=== PATIENT | female | born 1985 | race Caucasian/White ===

== ENCOUNTER → 2019-03-21 | Outpatient (CLI) | payer BC ==
--- NOTE | 2019-03-21 15:43 | US ---
EXAMINATION TYPE: US pelvic complete DATE OF EXAM: 03/21/2019 COMPARISON: NONE CLINICAL HISTORY: N92.3 Ovulation bleeding. Vaginal bleeding during and after intercourse. Intermenst rual spotting TECHNIQUE: Transabdominal (TA). Date of LMP: 03/14/19 EXAM MEASUREMENTS: Uterus: 10.1 x 3.4 x 5.6 cm Endometrial Stripe: 0.8 cm Right Ovary: 5.1 x 2.3 x 2.4 cm Left Ovary: 4.4 x 1.8 x 1.8 cm 1. Uterus: Anteverted appears wnl 2. Endometrium: wnl 3. Right Ovary: dominant follicle = 1.7 x 2.6 x 1.8cm 4. Left Ovary: follicles noted 5. Bilateral Adnexa: wnl 6. Posterior cul-de-sac: wnl IMPRESSION: Unremarkable pelvic ultrasound. Endometrial thickness is within normal limits. Physiologi c follicular change of the ovaries.
== END | disposition home or self-care (01) ==
LOC: RADUSWWP 14:53
PROVIDERS: ATTEND Obstetrics & Gynecology
DX: N92.3 Ovulation bleeding (principal)
CPT/HCPCS: 76856

== ENCOUNTER → 2020-05-07 | Outpatient (CLI) | payer BC ==
--- NOTE | 2020-05-07 14:54 | MM ---
Reason for exam: screening (asymptomatic). Baseline mammogram. History: Family history of breast cancer in maternal grandmother at age 70. Taking hormonal contraceptives beginning at age 14. Physical Findings: Nurse Summary: 2cm nodule in the right breast at 10-11 o'clock (nurse erin). MG 3D Screening Mammo W/Cad Bilateral CC and MLO view(s) were taken. The breast tissue is extremely dense which could obscure a lesion on mammography. There is no discrete abnormality including area of concern palpable region. These results were verbally communicated with the patient and result sheet given to the patient on 05/07/20. ASSESSMENT: Incomplete: need additional imaging evaluation, BI-RAD 0 RECOMMENDATION: Ultrasound of the right breast. (palpable)
--- NOTE | 2020-05-07 14:55 | USB ---
Reason for exam: additional evaluation requested from abnormal screening. History: Family history of breast cancer in maternal grandmother at age 70. Taking hormonal contraceptives beginning at age 14. Physical Findings: Breast exam preformed at baseline screening. US Breast Workup Limited RT Technologist: Alison Carbajal Right limited breast ultrasound including focal area of concern, retroareolar and axilla demonstrates a 0.7 x 0.7 x 0.5cm cystic lesion at 10 o'clock and a 1.1 x 0.6 x 0.6cm lymph node at the axilla. These results were verbally communicated with the patient and result sheet given to the patient on 05/07/20. ASSESSMENT: Benign, BI-RAD 2 RECOMMENDATION: Routine screening mammogram of both breasts at age 39. Manage on a clinical basis with regard to palpable.
== END | disposition home or self-care (01) ==
LOC: RADMAMWWP 12:58
PROVIDERS: ATTEND Obstetrics & Gynecology
DX: Z12.31 Encounter for screening mammogram for malignant neoplasm of breast (principal); N63.11 Unspecified lump in the right breast, upper outer quadrant
CPT/HCPCS: 77063; 77067

== ENCOUNTER → 2020-12-18 | Outpatient (CLI) | payer BC ==
--- NOTE | 2020-12-19 08:30 | XR ---
Lumbar spine HISTORY: M 54.41 3 views of the lumbar spine Lumbar vertebral bodies show preserved height, alignment, and bone mineralization. There is mild spon dylosis present. Disc spaces are maintained with exception of disc height loss at L1-2. Sclerosis pre sent in the posterior elements of the lower lumbar spine. IMPRESSION: Degenerative disc disease, facet arthropathy
== END | disposition home or self-care (01) ==
LOC: RADXRMAIN 16:35
PROVIDERS: ATTEND Internal Medicine
DX: M47.816 Spondylosis without myelopathy or radiculopathy, lumbar region (principal); M51.36 Other intervertebral disc degeneration, lumbar region
CPT/HCPCS: 72100

== ENCOUNTER → 2023-09-01 | Outpatient (CLI) | payer BC ==
--- NOTE | 2023-09-01 16:43 | CT ---
EXAMINATION TYPE: CT abdomen pelvis w con DATE OF EXAM: 09/01/2023 COMPARISON: None INDICATION: abd pain and bloating. DLP: 580.5 mGycm, Automated exposure control for dose reduction was used. CONTRAST: 100ml mL of Isovue 300. Study performed with Oral Contrast TECHNIQUE: Axial images were obtained from above the diaphragm to the pubic rami in the axial plane a t 5 mm thick sections. Reconstructed images are reviewed on the computer in the coronal plane. FINDINGS: Limited CT sections are obtained the lung bases. The lung bases are clear. CT ABDOMEN: Liver: Normal Spleen: Normal Pancreas: Normal Adrenal glands: The adrenal glands are normal. Gallbladder: Normal Kidneys: No masses are evident. No hydronephrosis is present. No cysts are present. Delayed images were obtained through the kidneys, which remain unremarkable. Aorta: None Inferior vena cava: Normal. CT PELVIS: Loops of bowel within the abdomen and pelvis are normal. There are loops of bowel which are incom pletely distended or lack oral contrast limiting their evaluation. Appendix: Normal as visualized. Urinary bladder: Normal. Genitourinary structures: Uterus as visualized is normal. Adnexa are normal Osseous structures: No suspicious lytic or sclerotic lesions. IMPRESSION: 1. No suspicious Q changes CT abdomen and pelvis
== END | disposition home or self-care (01) ==
LOC: RADCTMAIN 14:33
PROVIDERS: ATTEND Internal Medicine
DX: R10.9 Unspecified abdominal pain (principal); R14.0 Abdominal distension (gaseous)
CPT/HCPCS: 74177; Q9967

== ENCOUNTER → 2023-11-21 | Outpatient (CLI) | payer BC ==
--- NOTE | 2023-11-21 15:34 | CT ---
EXAMINATION TYPE: CT angio chest DATE OF EXAM: 11/21/2023 2:49 PM COMPARISON: None HISTORY: Covid positive x2wks ago, ongoing cough and SOB. CT DLP: 470 mGycm Automated exposure control for dose reduction was used. CONTRAST: CTA scan of the thorax is performed with IV Contrast, patient injected with 100ml mL of Isovue 370, p ulmonary embolism protocol FINDINGS: There are no filling defects within the pulmonary artery or branches to suggest pulmonary embolism. There is a large partially consolidative infiltrate in the left lower lobe consistent with an acute p neumonia. The right lung is clear. There is no pleural effusion or pneumothorax. There is no mediastinal, hilar or axillary adenopathy. Limited scanning through the upper abdomen is unremarkable. No focal osseous lesions are seen. IMPRESSION: 1. No evidence pulmonary embolus. 2. Large partially consolidative opacity in the left lower lobe consistent with acute pneumonia. [facility], , 11/21/2023 3:32 PM
== END | disposition home or self-care (01) ==
LOC: RADCTMAIN 14:18
PROVIDERS: ATTEND Internal Medicine
DX: U09.9 Post COVID-19 condition, unspecified
CPT/HCPCS: 71275

== ENCOUNTER 2023-12-13 06:32 | Day surgery (SDC) | payer BC ==
[~2023-12-13 06:32] MED LIST: LIDOCAINE 1% (10MG/ML) FOR IV START INTRADERMA PRN
[2023-12-13] MEDS: IV FLUID CONTINUATION 1,000 ML IV ONE (06:57)
[2023-12-13 07:09] VITALS: RESP 16; TEMP 97.8
[2023-12-13] MEDS ORDERED: LIDOCAINE 1% INJ 10MG/ML (20 ML MDV) ONE (07:22)
[2023-12-13] MEDS ORDERED: PROPOFOL 10 MG/ML 20 ML VIAL IV ONE (07:22)
[2023-12-13] MEDS: LACTATED RINGERS 1,000 ML IV SCH (07:23)
--- NOTE | 2023-12-13 07:43 | P.PCN ---
Date of Procedure: 12/13/23 Procedure(s) Performed: Brief history: Patient is a pleasant 38-year-old white female scheduled for an elective upper endoscopy as well as colonoscopy as a part of evaluation of abdominal bloating, abdominal discomfort, intermittent nausea and change in bowel habits for the last several months duration. Procedure performed: Esophagogastroduodenoscopy with biopsy Colonoscopy Preoperative diagnosis: Abdominal pain/abdominal bloating Change in bowel habits Anesthesia: MAC Procedure: After informed consent was obtained from the patient was brought into the endoscopy unit and IV sedation was administered by anesthesia under continuous monitoring. Initially upper endoscopy was done. The Olympus GF 160 video endoscope was inserted inserted into the mouth and esophagus intubated without any difficulty and was gradually advanced into the stomach and duodenum and carefully examined. The bulb and second part of the duodenum appeared normal. These were done from the duodenum rule out celiac disease. The scope was then withdrawn into the stomach adequately insufflated with air and upon careful examination the antrum and body, cardia and fundus appeared normal. The scope was then withdrawn into the esophagus. The GE junction was located at 40 cm to the incisors. It appeared regular with no erythema erosions or ulcerations. Biopsies were done from the distal esophagus rest of the esophagus appeared normal. Patient tolerated the procedure well. At this time the patient continued to remain sedation. Initial digital rectal examination was normal. Olympus CF 160 video colonoscope was then inserted into the rectum and gradually advanced to the cecum without any difficulty. Careful examination was performed as the scope was gradually being withdrawn. The prep was excellent. The cecum, ascending colon, transverse colon, descending colon, sigmoid colon and rectum appeared normal. Retroflexion was performed in the rectum and no lesions were noted. Patient tolerated the procedure well. Impression: 1. Upper endoscopy revealed mild antral gastritis but no evidence of esop hagitis or peptic ulcer disease. 2. Colonoscopy was within normal limits with no evidence of colorectal neoplasia Recommendations: Findings of this examination were discussed with the patient as well as her family. She was advised to follow-up with the biopsy results. Follow-up in the office in 2 weeks. Commend repeat screening colonoscopy in 10 years
[2023-12-13 08:04] VITALS: BP 118/80; PULSE 74
== END 2023-12-13 08:31 | disposition home or self-care (01) ==
LOC: ORWHC2ENDO 06:32
PROVIDERS: ATTEND Internal Medicine Gastroenterology
DX: K29.50 Unspecified chronic gastritis without bleeding (principal); K21.9 Gastro-esophageal reflux disease without esophagitis; D72.820 Lymphocytosis (symptomatic); E07.9 Disorder of thyroid, unspecified; Z79.890 Hormone replacement therapy; Z79.3 Long term (current) use of hormonal contraceptives
CPT/HCPCS: 88305; 45378; 43239; J2003; J2704

== ENCOUNTER → 2023-12-26 | Outpatient (CLI) | payer BC ==
[2023-12-26 19:15] LABS: Gliadin AB IgA, Deaminated Negative (Negative); Gliadin AB IgA, Unit 1.1 U/mL; Gliadin AB IgG, Deaminated Negative (Negative); Gliadin AB IgG, Unit <0.4 U/mL
== END | disposition home or self-care (01) ==
LOC: LABWHC1 08:32
PROVIDERS: ATTEND Internal Medicine Gastroenterology
DX: R14.0 Abdominal distension (gaseous) (principal)
CPT/HCPCS: 36415; 83516

== ENCOUNTER → 2024-01-26 | Outpatient (CLI) | payer BC ==
--- NOTE | 2024-01-26 13:15 | FL ---
EXAMINATION TYPE: FL UGI air w small bowel DATE OF EXAM: 01/26/2024 12:49 PM COMPARISON: 09/01/2023 CLINICAL INDICATION:Female, 38 years old with history of R10.9 ABDOMINAL PAIN; TECHNIQUE: The procedure was explained and patient history elicited. All patient questions were ans wered prior to start of procedure. A director digital marketing radiograph of the abdomen was also reviewed. Multiple flu oroscopic spot images of the esophagus, stomach and duodenum were obtained following ingestion of liq uid barium and EZ-gas crystals. After the completion of the upper gastrointestinal examination, a de tailed small bowel examination was performed. The patient was asked to ingest additional liquid juliane um and incremental frontal abdominal radiographs were then taken until contrast was visualized in the cecum. Fluoroscopic time:2 min 17 sec Fluoroscopic images:0 Radiographs taken: 123 DAP: NOT REPORTED [id number] FINDINGS: Upper GI examination: The director digital marketing abdominal radiograph demonstrates a normal bowel gas pattern without dilated loops of small or large bowel. There is no evidence for organomegaly or pneumoperitoneum. No abnormal calcificati ons. The visualized osseous structures are intact. The esophagus appears unremarkable without evidence of focal stricture, ulceration or abnormal outpou radha. No hiatal hernia was visualized. No evidence of gastroesophageal reflux was seen when the p atient was instructed to bear down. The stomach and duodenum demonstrate a normal course and contour. There is no evidence of focal gastric or duodenal ulceration, stricture, or abnormal outpouching. S mall bowel mucosal folds are felt to be within normal limits. Detailed small bowel examination: Contrast is seen extending from the duodenojejunal junction into the cecum after 3 hours 35 minutes, which is slightly delayed. The small bowel follows normal distribution and contour without any evide nce of extraluminal or intraluminal irregularity. There is no displacement of bowel loops or extralu nia extravasation of contrast material. IMPRESSION: 1. Normal upper gastrointestinal examination. 2. Mild delayed detailed small bowel examination. Normal contour and distribution of the small bowel. [facility], , 01/26/2024 1:13 PM
== END | disposition home or self-care (01) ==
LOC: RADFLMAIN 08:12
PROVIDERS: ATTEND Internal Medicine Gastroenterology
DX: R10.9 Unspecified abdominal pain (principal)
CPT/HCPCS: 74240; 74248